=== PATIENT | female | born 1950 | race African-American/Black ===

== ENCOUNTER 2016-11-03 09:05 | Emergency (ER) | payer BC, OTHER ==
[2016-11-03 09:16] VITALS: TEMP 98; BMI 41.1
--- NOTE | 2016-11-03 09:26 | PDOC ---
History of Present Illness - General Chief Complaint: Chest Pain Stated Complaint: CHEST PAIN Time Seen by Provider: 11/03/16 09:26 - History of Present Illness Initial Comments: 11/03/16 10:16 Patient is a 66-year-old female with past medical history of hypertension, insulin-dependent diabetes, obesity, who presents to the emergency department today complaining of chest pain for 2 days. Patient states that her chest pain started on the left side and radiated to her axilla. She states the pain was sharp and intermittent. She thought that it would go away, however patient states that she was concerned when the pain was still present this morning. She has not taken anything for the pain. She also states that she is a little short of breath with this and had some nausea. Denies vomiting. She was recently seen by her metal bench patternmaker and states that she had an EKG and an echo with a stress test done. Denies recent travel, hormone use, fevers, chills, recent illness, wheezing, vomiting, chest tightness, palpitations, GERD, diarrhea or constipation. Past History - Travel Traveled outside of the country in the last 30 days: No Close contact w/someone who was outside of country & ill: No - Past Medical History Allergies/Adverse Reactions: Allergies Allergy/AdvReac Type Severity Reaction Status Date / Time No Known Allergies Allergy Verified 11/03/16 09:16 Home Medications: Ambulatory Orders Amlodipine Besylate 5 mg PO DAILY 11/03/16 Hydrochlorothiazide 25 mg PO DAILY 11/03/16 Ibuprofen [Advil -] 200 mg PO QID 11/03/16 Insulin (Levemir) [Levemir Flexpen -] 65 units SQ BID 11/03/16 Insulin (Novolog) [Novolog Flexpen] 4 units SQ AC 11/03/16 Lisinopril 10 mg PO DAILY 11/03/16 Tramadol HCl 50 mg PO BID 11/03/16 Diabetes: Yes HTN: Yes - Surgical History Appendectomy: Yes - Psycho/Social/Smoking Cessation Hx Suicidal Ideation: No Smoking History: Current every day smoker Have you smoked in the past 12 months: No Number of Cigarettes Smoked Daily: 0 Information on smoking cessation initiated: Yes 'Breaking Loose' booklet given: 11/03/16 Hx Alcohol Use: Yes Drug/Substance Use Hx: No Substance Use Type: Alcohol, Marijuana Review of Systems - Review of Systems Able to Perform ROS?: Yes Is the patient limited Bel[place]ian proficient: No Constitutional: No: Chills, Fever, Weakness Respiratory: Yes: Shortness of Breath. No: Cough, Wheezing Cardiac (ROS): Yes: Chest Pain. No: Edema, Palpitations, Syncope, Chest Tightness ABD/GI: Yes: Nausea. No: Symptoms Reported, Constipated, Diarrhea, Poor Fluid Intake, Vomiting : No: Burning, Dysuria, Frequency, Hematuria Neurological: No: Headache, Numbness, Paresthesia, Tingling *Physical Exam - Vital Signs Last Vital Signs Temp Pulse Resp BP Pulse Ox 98 F 101 H 20 163/84 97 11/03/16 09:09 11/03/16 09:09 11/03/16 09:09 11/03/16 09:09 11/03/16 09:09 - Physical Exam Comments: 11/03/16 10:17 GENERAL: Well developed, well nourished, obese. AAOx3,. Mild distress, pt appears mildly uncomfortable. Breathing easily, O2 Sat 100% on RA. HEENT: Normocephalic, atraumatic. PERRLA, EOMI. No conjunctival pallor. Sclera are non- icteric. Moist mucous membranes. Oropharynx is clear. NECK: Supple. Full ROM. No JVD. Carotid pulses 2+ and symmetric, without bruits. No thyromegaly. No lymphadenopathy. CARDIOVASCULAR: Regular rate and rhythm. No murmurs, rubs, or gallops. Distal pulses are 2+ and symmetric. PULMONARY: No evidence of respiratory distress. Lungs clear to auscultation bilaterally. No wheezing, rales or rhonchi. ABDOMINAL: Soft. Non-tender. Non-distended. No rebound or guarding. No organomegaly. Normoactive bowel sounds. MUSCULOSKELETAL Normal range of motion at all joints. No bony deformities or tenderness. No CVA tenderness. EXTREMITIES: No cyanosis. No clubbing. No edema. No calf tenderness. SKIN: Warm and dry. Normal capillary refill. No rashes. No jaundice. NEUROLOGICAL: Alert, awake, appropriate. Cranial nerves 2-12 intact. No deficits to light touch and temperature in face, upper extremities and lower extremities. No motor deficits in the in face, upper extremities and lower extremities. Normoreflexic in the upper and lower extremities. Normal speech. Toes are down- going bilaterally. Gait is normal without ataxia. PSYCHIATRIC: Cooperative. Good eye contact. Appropriate mood and affect. Heart Score/ECG Review - History History: Slightly suspicious - Electrocardiogram EKG: Normal - Age Age: >/= 65 - Risk Factors Risk Factors Heart Score: Yes Hx Hypertension, Yes Hx Diabetes Based on the list above the patient has:: 1-2 risk factors - Troponin Troponin: </= normal limit - Score Heart Score - Total: 3 ED Treatment Course - LABORATORY CBC & Chemistry Diagram: 11/03/16 09:45 11/03/16 09:45 Medical Decision Making - Medical Decision Making 11/03/16 10:04 Call placed to pt. metal bench patternmaker, Dr. Linares to try and get pt. records for echo and stress test. 11/03/16 10:19 Patient is a 66-year-old female with past medical history of hypertension, insulin-dependent diabetes, obesity, who presents to the emergency department today complaining of chest pain for 2 days. Story sounds slightly suspicious for ACS, we will obtain order set. Other diagnosis includes costochondritis, GERD. Wells criteria 1.5 (heart rate 100) low risk for PE. 1.CBC, CMP, troponin, PT/INR, mag, lipase 2.aspirin, nitroglycerin 3.EKG 4.IV fluids 5.reevaluate. 11/03/16 11:12 EKG: Sinus tachycardia, normal intervals, normal axis, Rate, No acute ST-T wave changes. CXR: 2 views revealed clear lungs, prominent, normal abby and normal heart. Ankles are sharp. Soft tissues are intact and there are degenerative changes with several partially compressed vertebral bodies. Since a prior study of 2004 the vertebral changes have developed if symptoms persist further imaging with a CT may be of help. 11/03/16 11:54 First troponin is negative. Pt. states she feels a little bit better after the Nitro. Spoke with pt. metal bench patternmaker Dr. Randy Linares MD from [facility] , Pt. had an echo and stress test on 10/21/16 and they were both negative at that time. Echo showed an EF of greater than 65%. He feels that if the troponins are negative, she can be followed as an out pt. Will tell pt. of CXR results and to follow up with her PCP as an outpatient for further work up of her compression fractures. 11/03/16 15:00 Second troponin is negative. Will discharge home at this time. Pt. will follow up with Dr. Jackson tomorrow. Pt. understands all discharge instructions and all questions were answered at this time. *DC/Admit/Observation/Transfer Diagnosis at time of Disposition: Atypical chest pain - Discharge Dispostion Disposition: HOME Condition at time of disposition: Improved Admit: No - Referrals Referrals: Juliann Flowers MD [Primary Care Provider] - - Patient Instructions Printed Discharge Instructions: DI for Atypical Chest Pain Additional Instructions: Your testing today for your heart was negative. Rest for the day and keep your appointment with your metal bench patternmaker (Dr. Jackson) tomorrow. Keep a diary as to when you have your chest pain. Drink plenty of fluids as your lab work showed you were a little dehydrated. Return to the ED if you experience worsening chest pain, shortness of breath, palpitations or any changes in your symptoms.
[2016-11-03] MEDS ORDERED: ASPIRIN 81 MG CHEWABLE TABLETS PO ONE (09:43)
[2016-11-03] MEDS ORDERED: NITROGLYCERIN SUBLINGUAL 1/150 0.4 MG TAB SL ONE (09:47)
[2016-11-03 09:52] LABS: BASOPHIL 0.9 % (0-2.0); EOSINOPHIL 2.2 % (0-4.5); MCH 28.9 pg (25.7-33.7); MCHC 33.3 g/dl (32.0-36.0); MEAN PLT VOLUME 9.3 fl (7.5-11.1); NEUTROPHILS 61.4 % (42.8-82.8); PLATELET COUNT 240 K/MM3 (134-434); RDW 13.3 % (11.6-15.6)
[2016-11-03] MEDS ORDERED: ASPIRIN 81 MG CHEWABLE TABLETS ONE (09:54)
[2016-11-03 10:05] LABS: INR 1.06 (0.82-1.09); PROTHROMBIN TIME (PATIENT) 11.7 SEC (9.98-11.88)
[2016-11-03] MEDS ORDERED: SODIUM CHLORIDE 1,000 ML IV STA (10:10)
[2016-11-03 10:23] LABS: ALBUMIN 4.1 g/dl (3.4-5.0); ANION GAP 10 (8-16); BILIRUBIN,TOTAL 0.4 mg/dL (0.2-1.0); CALCIUM 9.7 mg/dL (8.5-10.1); CO2 28 mmol/L (21-32); CREATININE 0.9 mg/dL (0.55-1.02); GLUCOSE,RANDOM 132 mg/dL (74-106); SGOT/AST 54 U/L (15-37); SGPT/ALT 77 U/L (12-78); TOT PROT 7.8 g/dl (6.4-8.2)
[2016-11-03 10:25] LABS: ALK PHOS 82 U/L (45-117); CPK 397 IU/L (26-192); TROPONIN I < 0.02 ng/ml (0.00-0.05)
[2016-11-03] MEDS ORDERED: BISMUTH SUBSALICYLATE 262 MG/15 ML BTL PO ONE (10:55)
[2016-11-03] MEDS ORDERED: FAMOTIDINE 20 MG/50 ML IVPB 50 ML IVPB ONE ×2 (10:55→11:14)
--- NOTE | 2016-11-03 11:13 | PDOC ---
Attending Attestation - Resident Resident Name: Roseann Morrell - ED Attending Attestation I have performed the following: I have examined & evaluated the patient, The case was reviewed & discussed with the resident, I agree w/resident's findings & plan, Exceptions are as noted - HPI HPI: 11/03/16 11:11 66-year-old female with history of hypertension, diabetes presents with chest pain since yesterday. The patient reports is intermittent sharp midsternal chest pain with no radiation or shortness of breath. Denies diaphoresis or vomiting. The patient did go see a share dairy farmer where the physician interior design assistant I contacted the share dairy farmer. Stress test which was nuclear from last week was negative. - Physicial Exam PE: 11/03/16 11:12 GENERAL: Awake, alert, and fully oriented, in no acute distress. HEAD: No signs of trauma EYES: PERRLA, EOMI, sclera anicteric, conjunctiva clear ENT: Auricles normal inspection, hearing grossly normal, nares patent, oropharynx clear without exudates. NECK: Normal ROM, supple, no lymphadenopathy, JVD, or masses LUNGS: Breath sounds equal, clear to auscultation bilaterally. No wheezes, and no crackles HEART: Regular rate and rhythm, normal S1 and S2, no murmurs, rubs or gallops ABDOMEN: Soft, nontender, normoactive bowel sounds. No guarding, no rebound. No masses EXTREMITIES: Normal range of motion, no edema. No clubbing or cyanosis. No cords, erythema, or tenderness NEUROLOGICAL: Cranial nerves II through XII grossly intact. Normal speech, normal gait SKIN: Warm, Dry, normal turgor, no rashes or lesions noted. - Medical Decision Making 11/03/16 11:12 Vital Signs Temp Pulse Resp BP Pulse Ox 98 F 93 H 20 150/81 99 11/03/16 09:09 11/03/16 10:30 11/03/16 10:30 11/03/16 10:30 11/03/16 10:30 We'll rule out AL no unlikely to be acute chronic syndrome given a negative nuclear stress test. We'll obtain labs, two troponins and if negative discharge with follow-up with share dairy farmer tomorrow. Heart Score/ECG Review - History History: Slightly suspicious - Electrocardiogram EKG: Normal - Age Age: >/= 65 - Risk Factors Risk Factors Heart Score: Yes Hx Hypertension, Yes Hx Diabetes Based on the list above the patient has:: 1-2 risk factors - Troponin Troponin: </= normal limit - Score Heart Score - Total: 3 #1 ECG reviewed & interpreted by me at: 09:20 11/03/16 11:13 NSR 97, no std/dorothy, normal axis, normal intervals, QTC 436 msec
--- NOTE | 2016-11-03 12:14 | EKG ---
Test Reason : Blood Pressure : / mmHG Vent. Rate : 097 BPM Atrial Rate : 097 BPM P-R Int : 140 ms QRS Dur : 090 ms QT Int : 344 ms P-R-T Axes : 047 017 037 degrees QTc Int : 436 ms NORMAL SINUS RHYTHM POSSIBLE LEFT ATRIAL ENLARGEMENT BORDERLINE ECG WHEN COMPARED WITH ECG OF 25-FEB-2004 04:39, VENT. RATE HAS INCREASED BY 33 BPM BASE LINE ARTIFACTS CORRELATE CLINICALLY Confirmed by GLEN MENDOZA MD ([id number]) on 11/03/2016 12:14:08 PM Referred By: Confirmed By:GLEN MENDOZA MD
[2016-11-03 14:53] LABS: CPK 373 IU/L (26-192); TROPONIN I < 0.02 ng/ml (0.00-0.05)
[2016-11-03 15:52] VITALS: BP 148/82; PULSE 89
== END 2016-11-03 15:40 | disposition home or self-care (01) ==
LOC: JER 09:05
PROC: 3E0337Z Introduction of Electrolytic and Water Balance Substance into Peripheral Vein, Percutaneous Approach (ICD-10-PCS; principal; 2016-11-03)
PROC: 3E033GC Introduction of Other Therapeutic Substance into Peripheral Vein, Percutaneous Approach (ICD-10-PCS; 2016-11-03)
DX: R07.89 Other chest pain (principal); I11.0 Hypertensive heart disease with heart failure; E11.9 Type 2 diabetes mellitus without complications; Z79.4 Long term (current) use of insulin; E66.9 Obesity, unspecified; Z68.41 Body mass index [BMI] 40.0-44.9, adult
CPT/HCPCS: 36415; 71020-TC; 80053; 82553; 83690; 83735; 84484; 85025; 85610; 93005; 93010; 96361; 96365; 99285-25

== ENCOUNTER 2017-06-27 19:37 | Observation (INO) | payer OTHER ==
[2017-06-27 19:52] VITALS: BMI 40.9
--- NOTE | 2017-06-27 20:27 | PDOC ---
History of Present Illness - General History Source: Patient Exam Limitations: No Limitations - History of Present Illness Initial Comments: 06/27/17 20:50 The patient is a 67 year old female with a significant past medical history of HTN and IDDM who presents to the ED with complaints of lip swelling since earlier today and rash for several days. Patient states her PMD recently prescribed and increased her dosing of lisinopril. Since then, the patient reports intermittent hive-like rashes throughout her abdomen and extremities for the past several days. Patient reports a sudden onset of right sided mandibular and facial swelling prior to her arrival to the ED. Denies fever or chills. Denies throat pain or difficulty swallowing. Denies nausea or vomiting. Denies chest pain. Denies any other symptoms. <Leyda Connors - Last Filed: 06/27/17 20:49> <Kathi Genao - Last Filed: 06/28/17 01:27> - General Chief Complaint: Edema Stated Complaint: FACE SWELLING Time Seen by Provider: 06/27/17 20:12 Past History <Leyda Connors - Last Filed: 06/27/17 20:49> - Past Medical History COPD: No Diabetes: Yes HTN: Yes - Surgical History Appendectomy: Yes - Suicide/Smoking/Psychosocial Hx Smoking History: Never smoked Have you smoked in the past 12 months: No Number of Cigarettes Smoked Daily: 0 Information on smoking cessation initiated: No 'Breaking Loose' booklet given: 11/03/16 Hx Alcohol Use: Yes (3 times weekly) Drug/Substance Use Hx: Yes (Marijuana) Substance Use Type: Alcohol, Marijuana <Kathi Genao - Last Filed: 06/28/17 01:27> - Past Medical History Allergies/Adverse Reactions: Allergies Allergy/AdvReac Type Severity Reaction Status Date / Time No Known Allergies Allergy Verified 06/27/17 19:47 Home Medications: Ambulatory Orders Amlodipine Besylate 5 mg PO DAILY 11/03/16 Hydrochlorothiazide 25 mg PO DAILY 11/03/16 Ibuprofen [Advil -] 200 mg PO QID 11/03/16 Insulin (Levemir) [Levemir Flexpen -] 65 units SQ BID 11/03/16 Insulin (Novolog) [Novolog Flexpen] 4 units SQ AC 11/03/16 Lisinopril 10 mg PO DAILY 11/03/16 Tramadol HCl 50 mg PO BID 11/03/16 Review of Systems - Review of Systems Able to Perform ROS?: Yes Comments:: 06/27/17 20:50 CONSTITUTIONAL: Absent: fever, chills, diaphoresis, generalized weakness, malaise, loss of appetite HEENT: Absent: rhinorrhea, nasal congestion, throat pain, throat swelling, difficulty swallowing, mouth swelling, ear pain, eye pain, visual Changes CARDIOVASCULAR: Absent: chest pain, syncope, palpitations, irregular heart rate, lightheadedness , peripheral edema RESPIRATORY: Absent: cough, shortness of breath, dyspnea with exertion, orthopnea, wheezing, stridor, hemoptysis GASTROINTESTINAL: Absent: abdominal pain, abdominal distension, nausea, vomiting, diarrhea, constipation, melena, hematochezia GENITOURINARY: Absent: dysuria, frequency, urgency, hesitancy, hematuria, flank pain, genital pain MUSCULOSKELETAL: Absent: myalgia, arthralgia, joint swelling SKIN: + rash, facial swelling Absent: itching, pallor HEMATOLOGIC/IMMUNOLOGIC: Absent: easy bleeding, easy bruising, lymphadenopathy, frequent infections ENDOCRINE: Absent: unexplained weight gain, unexplained weight loss, heat intolerance, cold intolerance NEUROLOGIC: Absent: headache, focal weakness or paresthesias, dizziness, unsteady gait, seizure, mental status changes, bladder or bowel incontinence PSYCHIATRIC: Absent: anxiety, depression, suicidal or homicidal ideation, hallucinations. All Other Systems: Reviewed and Negative <Leyda Connors - Last Filed: 06/27/17 20:49> *Physical Exam - Vital Signs Last Vital Signs Temp Pulse Resp BP Pulse Ox 98.3 F 86 18 153/90 97 06/27/17 19:48 06/27/17 19:48 06/27/17 19:48 06/27/17 19:48 06/27/17 19:48 - Physical Exam Comments: 06/27/17 20:50 GENERAL:+ No hot potato voice, able to handle saliva. Patient is not tripoding Well developed, well nourished. Awake and alert. No acute distress. HEENT: + + right mandibular lip swelling and right facial swelling Normocephalic, atraumatic. PERRLA, EOMI. No conjunctival pallor. Sclera are non- icteric. Moist mucous membranes. Oropharynx is clear. ORAL: + uvula is midline. No sublingual swelling, no tongue swelling at this time NECK: Supple. Full ROM. No JVD. Carotid pulses 2+ and symmetric, without bruits. No thyromegaly. NCo lymphadenopathy. CARDIOVASCULAR: Regular rate and rhythm. No murmurs, rubs, or gallops. Distal pulses are 2+ and symmetric. PULMONARY: No evidence of respiratory distress. Lungs clear to auscultation bilaterally. No wheezing, rales or rhonchi. ABDOMINAL: + obese abdomen Soft. Non-tender. Non-distended. No rebound or guarding. No organomegaly. Normoactive bowel sounds. MUSCULOSKELETAL Normal range of motion at all joints. No bony deformities or tenderness. No CVA tenderness. EXTREMITIES: + bilateral trace pitting edema No cyanosis. No clubbing. No calf tenderness. SKIN: Warm and dry. Normal capillary refill. No rashes. No jaundice. NEUROLOGICAL: Alert, awake, appropriate. Cranial nerves 2-12 intact. No deficits to light touch and temperature in face, upper extremities and lower extremities. No motor deficits in the in face, upper extremities and lower extremities. Normoreflexic in the upper and lower extremities. Normal speech. Toes are down- going bilaterally. Gait is normal without ataxia. PSYCHIATRIC: Cooperative. Good eye contact. Appropriate mood and affect. <Leyda Connors - Last Filed: 06/27/17 20:49> - Vital Signs Last Vital Signs Temp Pulse Resp BP Pulse Ox 98.3 F 86 18 153/90 97 06/27/17 19:48 06/27/17 19:48 06/27/17 19:48 06/27/17 19:48 06/27/17 19:48 <Kathi Genao - Last Filed: 06/28/17 01:27> ED Treatment Course - Medications Given in the ED: ED Medications Discontinued Medications Generic Name Dose Route Start Last Admin Trade Name Freq PRN Reason Stop Dose Admin Diphenhydramine HCl 25 mg 06/27/17 20:28 06/27/17 20:35 Benadryl Injection - IVPUSH 06/27/17 20:29 25 mg ONCE ONE Administration Epinephrine 0.3 mg 06/27/17 20:29 06/27/17 20:35 Epipen 0.3mg - IM 06/27/17 20:30 0.3 mg ONCE STA Administration Famotidine 20 mg in 12 mls @ 144 mls/hr 06/27/17 20:29 06/27/17 20:35 Pepcid 20 Mg/12 Ml Push IVPB 06/27/17 20:33 144 mls/hr NOW ONE Administration Methylprednisolone Sodium Succinate 125 mg 06/27/17 20:28 06/27/17 20:35 Solu-Medrol - IVPB 06/27/17 20:29 125 mg ONCE ONE Administration <Leyda Connors - Last Filed: 06/27/17 20:49> - LABORATORY CBC & Chemistry Diagram: 06/27/17 20:50 06/27/17 20:50 <Kathi Genao - Last Filed: 06/28/17 01:27> Medical Decision Making - Medical Decision Making 06/27/17 23:04 67 yo female p/w mandibular lip swelling and facial swelling. No respiratory distress,no tripoding,no wheezing -intraoral exam showed uvula midline with no edema -pt is on an YULIYA inhibitor lisinopril and recently she had increased her lisinopril dosage pt denies any shortness of breath,she has no complaints of throat tightness ROS pt has no dental pain,no obvious dental abscess and no sublingual swelling no fever or chills no sob no throat tightness Differential did include swelling due to dental etiology ,facial abscess , and allergy/angioedema due to YULIYA inhibitor IMP angioedema 06/28/17 01:23 <Kathi Genao - Last Filed: 06/28/17 01:27> *DC/Admit/Observation/Transfer - Attestations Scribe Attestion: 06/27/17 20:50 Documentation prepared by Leyda Connors, acting as manager medical affairs for Kathi Genao MD <Leyda Connors - Last Filed: 06/27/17 20:49> - Discharge Dispostion Admit: Yes <Kathi Genao - Last Filed: 06/28/17 01:27> Diagnosis at time of Disposition: Insulin dependent diabetes mellitus Angioedema Qualifiers: Encounter type: initial encounter Qualified Code(s): T78.3XXA - Angioneurotic edema, initial encounter
[2017-06-27] MEDS ORDERED: methylPREDNISolone NA SUCC 125 MG/2 ML VIAL IVPB ONE (20:28)
[2017-06-27] MEDS ORDERED: EPINEPHrine 1:1,000 0.3 MG/0.3 ML SYR IM STA (20:29)
[2017-06-27] MEDS ORDERED: FAMOTIDINE IV 20 MG/12 ML VIAL IVPB ONE (20:29)
[2017-06-27] MEDS ORDERED: SODIUM CHLORIDE 1,000 ML IV SCH ×2 (20:30→22:45)
[2017-06-27] MEDS ORDERED: methylPREDNISolone NA SUCC 125 MG/2 ML VIAL ONE (20:34)
[2017-06-27] MEDS ORDERED: EPINEPHrine/PF 1 MG/1 ML (1:1,000) AMPULE ONE (20:34)
[2017-06-27] MEDS ORDERED: FAMOTIDINE 20 MG/50 ML IVPB 20 MG/50 ML MG IVPB ONE (20:34)
[2017-06-27 20:55] LABS: BASO % 1.3 % (0-2.0); EOS % 4.5 % (0-4.5); HEMATOCRIT 41.9 % (32.4-45.2); HEMOGLOBIN 14.1 GM/dL (10.7-15.3); MCH 30.1 pg (25.7-33.7); MCHC 33.8 g/dl (32.0-36.0); MEAN CELL VOLUME 88.9 fl (80-96); MEAN PLT VOLUME 9.3 fl (7.5-11.1); MONO % 6.6 % (3.8-10.2); NEUT % 58.6 % (42.8-82.8); PLATELET COUNT 208 K/MM3 (134-434); RBC 4.71 M/mm3 (3.60-5.2); RDW 13.3 % (11.6-15.6); WHITE BLOOD COUNT 9.3 K/mm3 (4.0-10.0)
[2017-06-27 21:08] LABS: PROTHROMBIN TIME (PATIENT) 11.3 SEC (9.98-11.88)
[2017-06-27 21:23] LABS: ALBUMIN 4.1 g/dl (3.4-5.0); ANION GAP 6 (8-16); BILIRUBIN,TOTAL 0.4 mg/dL (0.2-1.0); BLOOD UREA NITROGEN 19 mg/dL (7-18); CALCIUM 9.7 mg/dL (8.5-10.1); CHLORIDE 100 mmol/L (98-107); CO2 32 mmol/L (21-32); CREATININE 0.9 mg/dL (0.55-1.02); GLUCOSE,RANDOM 127 mg/dL (74-106); SGOT/AST 38 U/L (15-37); SGPT/ALT 64 U/L (12-78); SODIUM 138 mmol/L (136-145); TOT PROT 7.4 g/dl (6.4-8.2)
[2017-06-27 21:24] LABS: ALK PHOS 79 U/L (45-117)
--- NOTE | 2017-06-27 21:40 | HP ---
CHIEF COMPLAINT: angioedema x 1 day PCP: Dr. Flowers- [facility] HISTORY OF PRESENT ILLNESS: 67 y/o F with PMH HTN, DM, who presents to the ED c/o angioedema over the past day. As per patient, earlier this evening, she was watching television and drinking water when she developed sudden edema on the R side of her face, and her R upper and bottom lip. Pt states that her "lips felt stretched" and her family members noticed the change. Over the next few hours, her edema spread to the L side of her face. She became increasingly worried, so she decided to come to the ED for further evaluation. Pt notes that in the AM, she took her Lisinopril (20mg dose). She was started on Lisinopril 10mg qd by her PCP, Dr. Flowers, three months ago. Her dose was increased to 20mg a month ago. When her dose was increased, she started to develop hives all over her trunk and the posterior aspect of her lower extremities. Her sx were mildly alleviated with claritin. Her PCP said he would give her an epi-pen if she developed SOB. Pt currently denies active rashes, JJ, fever, chills, pruritis, SOB, throat closure , or changes in urinary or bowel function. 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 father- HTN, sister- DM, HTN Allergies metformin - causes nausea, emesis HOME MEDICATIONS: Home Medications Medication Instructions Recorded Amlodipine Besylate 5 mg PO DAILY 11/03/16 Hydrochlorothiazide 25 mg PO DAILY 11/03/16 Ibuprofen [Advil -] 200 mg PO QID 11/03/16 Insulin (Levemir) [Levemir Flexpen 65 units SQ BID 11/03/16 -] Insulin (Novolog) [Novolog Flexpen] 4 units SQ AC 11/03/16 Lisinopril 10 mg PO DAILY 11/03/16 Tramadol HCl 50 mg PO BID 11/03/16 REVIEW OF SYSTEMS CONSTITUTIONAL: Absent: fever, chills, diaphoresis, generalized weakness, malaise, loss of appetite, weight change HEENT: +facial edema, lip edema Absent: rhinorrhea, nasal congestion, throat pain, throat swelling, difficulty swallowing, mouth swelling, ear pain, eye pain, visual changes CARDIOVASCULAR: Absent: chest pain, syncope, palpitations, irregular heart rate, lightheadedness , peripheral edema RESPIRATORY: Absent: cough, shortness of breath, dyspnea with exertion, orthopnea, wheezing, stridor, hemoptysis GASTROINTESTINAL: Absent: abdominal pain, abdominal distension, nausea, vomiting, diarrhea, constipation, melena, hematochezia GENITOURINARY: Absent: dysuria, frequency, urgency, hesitancy, hematuria, flank pain, genital pain MUSCULOSKELETAL: Absent: myalgia, arthralgia, joint swelling, back pain, neck pain SKIN: Absent: rash, itching, pallor HEMATOLOGIC/IMMUNOLOGIC: Absent: easy bleeding, easy bruising, lymphadenopathy, frequent infections ENDOCRINE: Absent: unexplained weight gain, unexplained weight loss, heat intolerance, cold intolerance NEUROLOGIC: Absent: headache, focal weakness or paresthesias, dizziness, unsteady gait, seizure, mental status changes, bladder or bowel incontinence PSYCHIATRIC: Absent: anxiety, depression, suicidal or homicidal ideation, hallucinations. PHYSICAL EXAMINATION Vital Signs - 24 hr 06/27/17 19:48 Temperature 98.3 F Pulse Rate 86 Respiratory 18 Rate Blood Pressure 153/90 O2 Sat by Pulse 97 Oximetry (%) GENERAL: Pleasant woman. Resting comfortably, awake, alert, and fully oriented, in no acute distress. HEAD: Normal with no signs of trauma. EYES: Pupils equal, round and reactive to light, extraocular movements intact, sclera anicteric, conjunctiva clear. EARS, NOSE, THROAT: Ears normal, nares patent, oropharynx clear without exudates. Moist mucous membranes. NECK: Normal range of motion, supple LUNGS: Breath sounds equal, clear to auscultation bilaterally. No wheezes, and no crackles. No accessory muscle use. HEART: Regular rate and rhythm, normal S1 and S2 without murmur, rub or gallop. ABDOMEN: Soft, obese, nontender, not distended, normoactive bowel sounds, no guarding, no rebound, no masses. MUSCULOSKELETAL: Normal range of motion at all joints. No bony deformities or tenderness. No CVA tenderness. LOWER EXTREMITIES: 2+ radial pulses, warm, well-perfused. No calf tenderness. No peripheral edema. NEUROLOGICAL: Cranial nerves II-XII intact. Normal speech. Normal gait. PSYCHIATRIC: Cooperative. SKIN: no rashes present Laboratory Results - last 24 hr 06/27/17 06/27/17 06/27/17 20:50 20:50 20:50 WBC 9.3 D RBC 4.71 Hgb 14.1 Hct 41.9 MCV 88.9 MCH 30.1 MCHC 33.8 RDW 13.3 Plt Count 208 MPV 9.3 Neutrophils % 58.6 Lymphocytes % 29.0 Monocytes % 6.6 Eosinophils % 4.5 D Basophils % 1.3 PT with INR 11.30 INR 1.00 Sodium 138 Potassium 4.0 Chloride 100 Carbon Dioxide 32 Anion Gap 6 L BUN 19 H Creatinine 0.9 Creat Clearance w eGFR > 60 Random Glucose 127 H Calcium 9.7 Total Bilirubin 0.4 AST 38 H ALT 64 Alkaline Phosphatase 79 Total Protein 7.4 Albumin 4.1 EKG: NSR, normal axis, without ST-T changes. ASSESSMENT/PLAN: 67 y/o F with PMH HTN, DM, who presents to the ED c/o angioedema over the past day. As per patient, earlier this evening, she was watching television and drinking water when she developed sudden edema on the R side of her face, and her R lip. Pt admitted to tele-obs for angioedema 2/2 likely lisinopril rxn. #Angioedema 2/2 likely lisinopril rxn -Pt received benadryl 25mg IVPB, epi 0.3mg IM, pepcid 20mg IVPB, solumedrol 125mg IVPB in ED -Currently without SOB, rashes, or throat closure -likely rxn to lisinopril as pt developed rashes s/p lisinopril dose change. unlikely hereditary angioedema as no fam hx allergies -Will continue to monitor airway for changes -Will d/c Lisinopril -Continue pepcid 20mg IVPB in AM -Solumedrol 40mg IVPB in AM -Benadryl 25mg IVPB in AM -Will reassess edema, if needed will continue on above meds -tele-obs monitoring -NPO -IVF #HTN- controlled -Continue HCTZ 25mg qd -Amlodipine 5mg qd -lisinopril has been d/c #DM -ISS ACHS -BGM #F/E/N IV NS 100 cc/hr Monitor electrolytes NPO #PPX DVT: early ambulation, short stay likely #Dispo tele-obs for continued monitoring Visit type - Emergency Visit Emergency Visit: Yes ED Registration Date: 06/27/17 Care time: The patient presented to the Emergency Department on the above date and was hospitalized for further evaluation of their emergent condition. - New Patient This patient is new to me today: Yes Date on this admission: 06/28/17 - Critical Care Critical Care patient: No Hospitalist Screening - Colonoscopy Questionnaire Colonoscopy Questionnaire: Colonoscopy Questionnaire - Patient: 50 - 75 years old and never had a screening colonoscopy: Unknown History of colon or rectal polyps, or CA: Unknown History of IBD, Crohn's disease or UC: Unknown History of abdominal radiation therapy as a child: Unknown - Relative: 1 with colon or rectal CA, or polyps at age 60 or younger: Unknown Colon or rectal CA diagnosed at age 45 or younger: Unknown Multiple relatives with colon or rectal CA: Unknown - Outcome: Screening Result: Negative Screen
--- NOTE | 2017-06-27 21:47 | PN ---
Teaching Attending Note Name of Resident: Lyubov Lebron ATTENDING PHYSICIAN STATEMENT I saw and evaluated the patient. I reviewed the resident's note and discussed the case with the resident. I agree with the resident's findings and plan as documented. SUBJECTIVE: 66 yo F w. pmhx of IDDM, obesity, HTN who presents with lip swelling. Her PMD had recently increased her dose of her Lisinopril. She has had hives on her abdomen/extremities for past few days. States prior to her rrival in ED. No throat pain or swelling. No chest pain, pressure or shortness of breath. OBJECTIVE: Physical: VS: Vital Signs Period Temp Pulse Resp BP Sys/Samuel Pulse Ox Last 24 Hr 98.3 F 86 18 153/90 97 GEN: NAD, Resting in bed, AA0X3, Speaking full complete clear sentences HEENT: NCAT, PERRL, R lip edema, tongue not edematous, throat clear without erythema, edema, or exudates CARD: RRR S1, S2 RESP: CTAB ABD: BSx4, NTD to palpation EXT: - C/C/E CBCD WBC 9.3 K/mm3 (4.0-10.0) D 06/27/17 20:50 RBC 4.71 M/mm3 (3.60-5.2) 06/27/17 20:50 Hgb 14.1 GM/dL (10.7-15.3) 06/27/17 20:50 Hct 41.9 % (32.4-45.2) 06/27/17 20:50 MCV 88.9 fl (80-96) 06/27/17 20:50 MCHC 33.8 g/dl (32.0-36.0) 06/27/17 20:50 RDW 13.3 % (11.6-15.6) 06/27/17 20:50 Plt Count 208 K/MM3 (134-434) 06/27/17 20:50 MPV 9.3 fl (7.5-11.1) 06/27/17 20:50 CMP Sodium 138 mmol/L (136-145) 06/27/17 20:50 Potassium 4.0 mmol/L (3.5-5.1) 06/27/17 20:50 Chloride 100 mmol/L (98-107) 03/25/18 20:50 Carbon Dioxide 32 mmol/L (21-32) 06/27/17 20:50 Anion Gap 6 (8-16) L 06/27/17 20:50 BUN 19 mg/dL (7-18) H 06/27/17 20:50 Creatinine 0.9 mg/dL (0.55-1.02) 06/27/17 20:50 Creat Clearance w eGFR > 60 (>60) 06/27/17 20:50 Random Glucose 127 mg/dL (74-106) H 06/27/17 20:50 Calcium 9.7 mg/dL (8.5-10.1) 06/27/17 20:50 Total Bilirubin 0.4 mg/dL (0.2-1.0) 06/27/17 20:50 AST 38 U/L (15-37) H 06/27/17 20:50 ALT 64 U/L (12-78) 06/27/17 20:50 Alkaline Phosphatase 79 U/L (45-117) 06/27/17 20:50 Total Protein 7.4 g/dl (6.4-8.2) 06/27/17 20:50 Albumin 4.1 g/dl (3.4-5.0) 06/27/17 20:50 Home Medications Medication Instructions Recorded Amlodipine Besylate 5 mg PO DAILY 11/03/16 Hydrochlorothiazide 25 mg PO DAILY 11/03/16 Ibuprofen [Advil -] 200 mg PO QID 11/03/16 Insulin (Levemir) [Levemir Flexpen 65 units SQ BID 11/03/16 -] Insulin (Novolog) [Novolog Flexpen] 4 units SQ AC 11/03/16 Lisinopril 10 mg PO DAILY 11/03/16 Tramadol HCl 50 mg PO BID 11/03/16 EKG- Pending CXR- Pending ASSESSMENT AND PLAN: 67 F with IDDM, Obesity, HTN, who presents with angioedema 1.) Angioedema - S/P Epi - Solu-medrol - Benadryl - Pepcid - Monitor on Tele - NPO for now - IVF 2.) IDDM - FS -RAISS 3.) HTN - DO NOT use Lisinopril - Resume Amlodipine in AM 4.) Dvt Ppx - Anticipate <24 hr stay - [facility] in Obs-Tele
[2017-06-27 22:51] LABS: URINE APPEARANCE CLEAR; URINE BILIRUBIN NEGATIVE (<2.0 mg/dL); URINE BLOOD NEGATIVE (NEGATIVE); URINE COLOR COLORLESS; URINE GLUCOSE (UA) NEGATIVE (NEGATIVE); URINE KETONE NEGATIVE (NEGATIVE); URINE NITRITE NEGATIVE (NEGATIVE); URINE PROTEIN NEGATIVE (NEGATIVE); URINE UROBILINOGEN NEGATIVE mg/dL (0.2-1.0)
[2017-06-27 22:52] LABS: URINE LEUK ESTERASE 2+ (NEGATIVE)
[2017-06-27 22:53] LABS: EPI CELLS RARE /HPF (FEW); URINE BACTERIA RARE /hpf (NONE SEEN)
[2017-06-28 01:28] VITALS: TEMP 97.9
[2017-06-28] MEDS: methylPREDNISolone NA SUCC 40 MG/1 ML VIAL IVPB SCH ×2 (06:04→10:18)
--- NOTE | 2017-06-28 06:51 | PN ---
Physical Exam: SUBJECTIVE: Patient seen and examined OBJECTIVE: Vital Signs Intake & Output 06/25/17 06/26/17 06/27/17 06/28/17 23:59 23:59 23:59 23:59 Weight 106.594 kg Period Temp Pulse Resp BP Sys/Samuel Pulse Ox Last 24 Hr 97.9 F-98.3 F 83-86 18-18 135-153/80-92 96-98 GENERAL: The patient is awake, alert, and fully oriented, in no acute distress. HEAD: Normal with no signs of trauma. EYES: PERRL, extraocular movements intact, sclera anicteric, conjunctiva clear. No ptosis. ENT: Ears normal, nares patent, oropharynx clear without exudates, moist mucous membranes. NECK: Trachea midline, full range of motion, supple. LUNGS: Breath sounds equal, clear to auscultation bilaterally, no wheezes, no crackles, no accessory muscle use. HEART: Regular rate and rhythm, S1, S2 without murmur, rub or gallop. ABDOMEN: Soft, nontender, nondistended, normoactive bowel sounds, no guarding, no rebound, no hepatosplenomegaly, no masses. EXTREMITIES: 2+ pulses, warm, well-perfused, no edema. NEUROLOGICAL: Cranial nerves II through XII grossly intact. Normal speech, gait not observed. PSYCH: Normal mood, normal affect. SKIN: Warm, dry, normal turgor, no rashes or lesions noted Laboratory Results - last 24 hr CBC, BMP CBC, BMP 06/28/17 06:30 06/28/17 06:30 06/27/17 20:50 06/27/17 20:50 06/27/17 06/27/17 06/27/17 20:50 20:50 20:50 WBC 9.3 D RBC 4.71 Hgb 14.1 Hct 41.9 MCV 88.9 MCH 30.1 MCHC 33.8 RDW 13.3 Plt Count 208 MPV 9.3 Neutrophils % 58.6 Lymphocytes % 29.0 Monocytes % 6.6 Eosinophils % 4.5 D Basophils % 1.3 PT with INR 11.30 INR 1.00 Sodium 138 Potassium 4.0 Chloride 100 Carbon Dioxide 32 Anion Gap 6 L BUN 19 H Creatinine 0.9 Creat Clearance w eGFR > 60 Random Glucose 127 H Calcium 9.7 Total Bilirubin 0.4 AST 38 H ALT 64 Alkaline Phosphatase 79 Total Protein 7.4 Albumin 4.1 Urine Color Urine Appearance Urine pH Ur Specific [place] Urine Protein Urine Glucose (UA) Urine Ketones Urine Blood Urine Nitrite Urine Bilirubin Urine Urobilinogen Ur Leukocyte Esterase Urine WBC (Auto) Urine RBC (Auto) Ur Epithelial Cells Urine Bacteria 06/27/17 22:45 WBC RBC Hgb Hct MCV MCH MCHC RDW Plt Count MPV Neutrophils % Lymphocytes % Monocytes % Eosinophils % Basophils % PT with INR INR Sodium Potassium Chloride Carbon Dioxide Anion Gap BUN Creatinine Creat Clearance w eGFR Random Glucose Calcium Total Bilirubin AST ALT Alkaline Phosphatase Total Protein Albumin Urine Color Colorless Urine Appearance Clear Urine pH 6.0 Ur Specific [place] 1.004 Urine Protein Negative Urine Glucose (UA) Negative Urine Ketones Negative Urine Blood Negative Urine Nitrite Negative Urine Bilirubin Negative Urine Urobilinogen Negative Ur Leukocyte Esterase 2+ H Urine WBC (Auto) 5 Urine RBC (Auto) 2 Ur Epithelial Cells Rare Urine Bacteria Rare Active Medications Generic Name Dose Route Start Last Admin Trade Name Freq PRN Reason Stop Dose Admin Amlodipine Besylate 5 mg 06/28/17 10:00 Norvasc - PO DAILY JARRED Diphenhydramine HCl 25 mg 06/28/17 07:00 06/28/17 06:11 Benadryl Injection - IVPUSH 25 mg DAILY JARRED Administration Hydrochlorothiazide 25 mg 06/28/17 10:00 Hctz - PO DAILY JARRED Sodium Chloride 1,000 mls @ 100 mls/hr 06/27/17 22:45 06/27/17 22:47 Normal Saline - IV 100 mls/hr ASDIR JARRED Administration Famotidine/Sodium Chloride 20 mg in 50 mls @ 100 mls/hr 06/28/17 07:00 06:04 Pepcid 20 Mg Premixed Ivpb - IVPB 06/28/17 07:29 100 mls/hr ONCE ONE Administration Insulin Aspart 1 vial 06/28/17 07:00 06/28/17 06:11 Novolog Vial Sliding Scale - SQ Not Given ACHS JARRED Protocol Methylprednisolone Sodium Succinate 40 mg 06/28/17 07:00 06/28/17 06:04 Solu-Medrol - IVPB 40 mg DAILY JARRED Administration No micro UA - 2+ leuk esterase, otherwise normal CXR 06/27 - No pathology ASSESSMENT/PLAN: 67 y/o F with PMH HTN, DM, who presents to the ED c/o angioedema over the past day. As per patient, earlier this evening, she was watching television and drinking water when she developed sudden edema on the R side of her face, and her R lip. Pt admitted to tele-obs for angioedema 2/2 likely lisinopril rxn. #Angioedema 2/2 likely lisinopril rxn -Pt received benadryl 25mg IVPB, epi 0.3mg IM, pepcid 20mg IVPB, solumedrol 125mg IVPB in ED -Currently without SOB, rashes, or throat closure -likely rxn to lisinopril as pt developed rashes s/p lisinopril dose change. unlikely hereditary angioedema as no fam hx allergies -Will continue to monitor airway for changes -Will d/c Lisinopril -Continue pepcid 20mg IVPB in AM -Solumedrol 40mg IVPB in AM -Benadryl 25mg IVPB in AM -Will reassess edema, if needed will continue on above meds -tele-obs monitoring -NPO -IVF #HTN- controlled -Continue HCTZ 25mg qd -Amlodipine 5mg qd -lisinopril has been d/c #DM -ISS ACHS -BGM #F/E/N IV NS 100 cc/hr Monitor electrolytes NPO #PPX DVT: early ambulation, short stay likely #Dispo tele-obs for continued monitoring
[2017-06-28] MEDS ORDERED: INSULIN SLIDING SCALE (NOVOLOG) 1 VIAL SQ SCH (07:00)
[2017-06-28] MEDS ORDERED: FAMOTIDINE 20 MG/50 ML IVPB 20 MG/50 ML MG IVPB ONE (07:00)
[2017-06-28 07:03] LABS: BASO % 0.5 % (0-2.0); HEMOGLOBIN 14.1 GM/dL (10.7-15.3); LYMPH % 13.1 % (8-40); MCH 30.5 pg (25.7-33.7); MCHC 34.4 g/dl (32.0-36.0); MEAN CELL VOLUME 88.7 fl (80-96); MONO % 1.3 % (3.8-10.2); NEUT % 85.1 % (42.8-82.8); PLATELET COUNT 244 K/MM3 (134-434); RBC 4.62 M/mm3 (3.60-5.2); RDW 13.3 % (11.6-15.6); WHITE BLOOD COUNT 8.5 K/mm3 (4.0-10.0)
[2017-06-28 07:30] LABS: ANION GAP 11 (8-16); BLOOD UREA NITROGEN 17 mg/dL (7-18); CALCIUM 9.2 mg/dL (8.5-10.1); CHLORIDE 101 mmol/L (98-107); CO2 28 mmol/L (21-32); CREATININE 0.9 mg/dL (0.55-1.02); GLUCOSE,RANDOM 265 mg/dL (74-106); MAGNESIUM 2.2 mg/dL (1.8-2.4); PHOSPHOROUS 3.8 mg/dL (2.5-4.9); POTASSIUM 4.9 mmol/L (3.5-5.1); SODIUM 140 mmol/L (136-145)
[2017-06-28] MEDS ORDERED: methylPREDNISolone NA SUCC 40 MG/1 ML VIAL IVPB SCH (10:00)
[2017-06-28] MEDS ORDERED: amLODIPine BESYLATE 5 MG TABLET (FP) PO SCH (10:00)
[2017-06-28] MEDS ORDERED: HYDROCHLOROTHIAZIDE 25 MG TABLET (FP) PO SCH (10:00)
[2017-06-28] MEDS ORDERED: FAMOTIDINE IV 20 MG/12 ML VIAL IVPB ONE (10:00)
[2017-06-28] MEDS ORDERED: LOSARTAN POTASSIUM 25 MG TABLET PO ONE (11:47)
[2017-06-28] MEDS ORDERED: ACETAMINOPHEN 325 MG TABLET (FP) PO ONE (11:52)
[2017-06-28] MEDS ORDERED: ACETAMINOPHEN 325 MG TABLET (FP) ONE (12:12)
[2017-06-28 12:49] VITALS: BP 178/98; PULSE 65
--- NOTE | 2017-06-28 13:38 | DS ---
Physical Exam: SUBJECTIVE: Patient seen and examined by me this AM - No major overnight events. Swelling in face resolved. Per pt, has experienced hives every other day after lisinopril increased from 10 to 20mg last month. One prior episode of facial edema, resolved with oral benadryl at home OBJECTIVE: Vital Signs Intake & Output 06/25/17 06/26/17 06/27/17 06/28/17 23:59 23:59 23:59 23:59 Weight 106.594 kg Period Temp Pulse Resp BP Sys/Samuel Pulse Ox Last 24 Hr 97.9 F-98.3 F 65-98 16-18 135-190/80-106 96-100 PHYSICAL EXAM GENERAL: The patient is awake, alert, and fully oriented, in no acute distress. HEAD: Normal with no signs of trauma. EYES: PERRL, extraocular movements intact, sclera anicteric, conjunctiva clear. ENT: Ears normal, nares patent, oropharynx clear without exudates, moist mucous membranes. NECK: Trachea midline, full range of motion, supple. LUNGS: Breath sounds equal, clear to auscultation bilaterally, no wheezes, no crackles, no accessory muscle use. HEART: Regular rate and rhythm, S1, S2 without murmur, rub or gallop. ABDOMEN: Soft, nontender, nondistended, normoactive bowel sounds, no guarding, no rebound, no hepatosplenomegaly, no masses. EXTREMITIES: 2+ pulses, warm, well-perfused, no edema. NEUROLOGICAL: Cranial nerves II through XII grossly intact. Normal speech, gait not observed. PSYCH: Normal mood, normal affect. SKIN: Warm, dry, normal turgor, no rashes or lesions noted. LABS Laboratory Results - last 24 hr CBC, BMP 06/28/17 06:30 06/28/17 06:30 06/27/17 06/27/17 06/27/17 20:50 20:50 20:50 WBC 9.3 D RBC 4.71 Hgb 14.1 Hct 41.9 MCV 88.9 MCH 30.1 MCHC 33.8 RDW 13.3 Plt Count 208 MPV 9.3 Neutrophils % 58.6 Lymphocytes % 29.0 Monocytes % 6.6 Eosinophils % 4.5 D Basophils % 1.3 PT with INR 11.30 INR 1.00 Sodium 138 Potassium 4.0 Chloride 100 Carbon Dioxide 32 Anion Gap 6 L BUN 19 H Creatinine 0.9 Creat Clearance w eGFR > 60 Random Glucose 127 H Calcium 9.7 Phosphorus Magnesium Total Bilirubin 0.4 AST 38 H ALT 64 Alkaline Phosphatase 79 Total Protein 7.4 Albumin 4.1 Urine Color Urine Appearance Urine pH Ur Specific [place] Urine Protein Urine Glucose (UA) Urine Ketones Urine Blood Urine Nitrite Urine Bilirubin Urine Urobilinogen Ur Leukocyte Esterase Urine WBC (Auto) Urine RBC (Auto) Ur Epithelial Cells Urine Bacteria 06/27/17 06/28/17 06/28/17 22:45 06:30 06:30 WBC 8.5 RBC 4.62 Hgb 14.1 Hct 41.0 MCV 88.7 MCH 30.5 MCHC 34.4 RDW 13.3 Plt Count 244 MPV 9.0 Neutrophils % 85.1 H D Lymphocytes % 13.1 D Monocytes % 1.3 L D Eosinophils % 0.0 D Basophils % 0.5 PT with INR INR Sodium 140 Potassium 4.9 Chloride 101 Carbon Dioxide 28 Anion Gap 11 BUN 17 Creatinine 0.9 Creat Clearance w eGFR Random Glucose 265 H Calcium 9.2 Phosphorus 3.8 Magnesium 2.2 Total Bilirubin AST ALT Alkaline Phosphatase Total Protein Albumin Urine Color Colorless Urine Appearance Clear Urine pH 6.0 Ur Specific [place] 1.004 Urine Protein Negative Urine Glucose (UA) Negative Urine Ketones Negative Urine Blood Negative Urine Nitrite Negative Urine Bilirubin Negative Urine Urobilinogen Negative Ur Leukocyte Esterase 2+ H Urine WBC (Auto) 5 Urine RBC (Auto) 2 Ur Epithelial Cells Rare Urine Bacteria Rare UA - 2+ leuk esterase, otherwise normal CXR 06/27 - No pathology No consults HOSPITAL COURSE: Prehospital course: 67 y/o F with PMH HTN, DM, who presents to the ED c/o angioedema over the past day. As per patient, earlier this evening, she was watching television and drinking water when she developed sudden edema on the R side of her face, and her R upper and bottom lip. Pt states that her "lips felt stretched" and her family members noticed the change. Over the next few hours, her edema spread to the L side of her face. She became increasingly worried, so she decided to come to the ED for further evaluation. Pt notes that in the AM, she took her Lisinopril (20mg dose). She was started on Lisinopril 10mg qd by her PCP, Dr. Flowers, three months ago. Her dose was increased to 20mg a month ago. When her dose was increased, she started to develop hives all over her trunk and the posterior aspect of her lower extremities. Her sx were mildly alleviated with claritin. Her PCP said he would give her an epi-pen if she developed SOB. Pt currently denies active rashes, JJ, fever, chills, pruritis, SOB, throat closure , or changes in urinary or bowel function. Hospital course: No lab abnormalities in ED. UA notable for 2+ leuk esterase. CXR unremarkable. Pt satting well on RA. Pt received one dose of benadryl, epi-pen, pepcid, solumedrol 125mg IV. Started on NS 125cc/hr. Lisinopril held. Pt with significant improvement in symptoms overnight. In AM, felt much better, no further swelling. However, BP in AM 190/106 before AM HTN meds. Pt with desire to leave AM to see son at home, convince to stay for AM until BP better controlled. BP 161/94 one hour after, ordered for one dose of losartan 25mg. Repeat BP 178/98. Will d/c home with addition of losartan to home meds and d/c of lisinopril. Plan for f/u with PCP. Date of Admission:06/27/17 Date of Discharge: 06/28/17 Pt is medically stable and cleared for discharge with f/u with PCP in one week. Minutes to complete discharge: 35 Discharge Summary Reason For Visit: INSULIN DEPENDENT DIABETES MELLITUS, ANGIOEDEMA Current Active Problems Angioedema (Acute) Insulin dependent diabetes mellitus (Acute) Condition: Improved - Instructions Diet, Activity, Other Instructions: During your stay at [facility], you were treated for angioedema, swelling of the face. You were treated for this condition with benadryl and have since improved and are stable for discharge. We have determined this reaction is likely due to your recent lisinopril use. Medications: Please stop taking your home lisinopril as this was the likely cause of your facial swelling. Please continue to take all other home medications as previously directed. Follow-ups: Please follow-up with your primary care physician, Dr. Flowers, in one week for further management of your medications. Please call their office to schedule an appointment. If you experience a recurrence of your facial swelling or hives, please take oral benadryl 25mg once every 4-6 hours, until the swelling resolves. Diet/exercise: You are cleared for a normal diet and exercise routine. Please return to the hospital if you experience any of the following symptoms: - Swelling of your face, eyes or throat - Worsening rash that does not resolve with benadryl - Difficulty breathing or a worsening sensation of throat tightness - Persistent changes in vision or prolonged dizziness - Persistent nausea or vomiting - Any new or concerning symptoms Referrals: Juliann Flowers MD [Primary Care Provider] - 06/28/17 Disposition: HOME - Home Medications Comprehensive Discharge Medication List: Ambulatory Orders Amlodipine Besylate 5 mg PO DAILY 11/03/16 Hydrochlorothiazide 25 mg PO DAILY 11/03/16 Ibuprofen [Advil -] 200 mg PO QID 11/03/16 Insulin (Levemir) [Levemir Flexpen -] 65 units SQ BID 11/03/16 Insulin (Novolog) [Novolog Flexpen -] 4 units SQ AC 11/03/16 Tramadol HCl 50 mg PO BID 11/03/16 Losartan Potassium 25 mg PO DAILY #30 tablet 06/28/17 This patient is new to me today: Yes Date on this admission: 06/28/17 Emergency Visit: Yes ED Registration Date: 06/27/17 Care time: The patient presented to the Emergency Department on the above date and was hospitalized for further evaluation of their emergent condition. Critical Care patient: No - Discharge Referral Referred to [facility] No
--- NOTE | 2017-06-28 14:50 | EKG ---
Test Reason : Blood Pressure : / mmHG Vent. Rate : 074 BPM Atrial Rate : 074 BPM P-R Int : 150 ms QRS Dur : 088 ms QT Int : 416 ms P-R-T Axes : 047 010 018 degrees QTc Int : 461 ms NORMAL SINUS RHYTHM NORMAL ECG WHEN COMPARED WITH ECG OF 03-NOV-2016 09:18, NO SIGNIFICANT CHANGE WAS FOUND Confirmed by MARYAM VICTOR MD ([id number]) on 06/28/2017 2:49:39 PM Referred By: Confirmed By:MARYAM VICTOR MD
--- NOTE | 2017-06-28 14:55 | PN ---
Teaching Attending Note Name of Resident: Mian Ryan ATTENDING PHYSICIAN STATEMENT I saw and evaluated the patient. I reviewed the resident's note and discussed the case with the resident. I agree with the resident's findings and plan as documented. SUBJECTIVE:asymptomatic. states she had some facial swelling in the past when first starting lisinopril but was not severe and dissipated quickly. and did not realize it was from medication. has been having hives once medication was increased but PMD did not think it was from medication. denies CP, SOB, fever, chills, stridor, numbness tingling of lips or tongue OBJECTIVE: Last Vital Signs Temp Pulse Resp BP Pulse Ox 97.9 F 65 16 178/98 100 06/28/17 05:48 06/28/17 12:49 06/28/17 12:49 06/28/17 12:49 06/28/17 12:49 General HEENT R cheek swelling, none noted of the lips or tongue no stridor CV S1 S2 RRR No murmur/rub/gallop Lungs CTA B/L no wheezing/rales/rhonchi ASSESSMENT AND PLAN: 67yo F wtih PMH DM and HTN presented wtih lip swelling 1. Angioedema- s/p epipen/medrol/pepcid/benadryl. resolving. no tongue involvement. speaking in clear sentences. will place acei as allergy 2. HTN- uncontrolled. will give AM meds now norvasc and HCTZ. can consider ARB if BP not controlled. pt agreeable to following up with PMD this week 3. d/c home wiht close follow up for BP management
== END 2017-06-28 12:51 | disposition home or self-care (01) ==
LOC: JER 19:37 → JERBED 21:38
PROVIDERS: ADMIT Internal Medicine; ATTEND Internal Medicine
PROC: 3E033GC Introduction of Other Therapeutic Substance into Peripheral Vein, Percutaneous Approach (ICD-10-PCS; principal; 2017-06-27)
PROC: 3E0333Z Introduction of Anti-inflammatory into Peripheral Vein, Percutaneous Approach (ICD-10-PCS; 2017-06-27)
PROC: 3E0337Z Introduction of Electrolytic and Water Balance Substance into Peripheral Vein, Percutaneous Approach (ICD-10-PCS; 2017-06-27)
PROC: 3E023GC Introduction of Other Therapeutic Substance into Muscle, Percutaneous Approach (ICD-10-PCS; 2017-06-27)
DX: T78.3XXA Angioneurotic edema, initial encounter (principal); E11.9 Type 2 diabetes mellitus without complications; I10 Essential (primary) hypertension; Z79.4 Long term (current) use of insulin; X58.XXXA Exposure to other specified factors, initial encounter; E66.9 Obesity, unspecified; Z68.41 Body mass index [BMI] 40.0-44.9, adult
CPT/HCPCS: 36415; 71045-TC-FY; 80048; 80053; 81003; 81015; 82962; 83735; 84100; 85025; 85610; 93005; 93010; 96365; 96372; 96375; 99285-25; G0378; J7030

== ENCOUNTER 2018-04-02 16:13 | Emergency (ER) | payer OTHER ==
[2018-04-02 16:21] VITALS: BP 160/86; PULSE 96; TEMP 98.5; BMI 40.7
--- NOTE | 2018-04-02 17:08 | PDOC ---
History of Present Illness - General Chief Complaint: Injury Stated Complaint: FALL Time Seen by Provider: 04/02/18 16:24 History Source: Patient - History of Present Illness Pain Location: reports: chest, head, lower extremity, upper extremity Method of Injury: Yes: fall Past History - Past Medical History Allergies/Adverse Reactions: Allergies Allergy/AdvReac Type Severity Reaction Status Date / Time lisinopril Allergy Severe Difficulty Verified 04/02/18 16:17 Breathing Home Medications: Ambulatory Orders Amlodipine Besylate 5 mg PO DAILY 11/03/16 Hydrochlorothiazide 25 mg PO DAILY 11/03/16 Ibuprofen [Advil -] 200 mg PO QID 11/03/16 Insulin (Levemir) [Levemir Flexpen -] 65 units SQ BID 11/03/16 Insulin (Novolog) [Novolog Flexpen -] 4 units SQ AC 11/03/16 Tramadol HCl 50 mg PO BID 11/03/16 Losartan Potassium 25 mg PO DAILY #30 tablet 06/28/17 COPD: No Diabetes: Yes HTN: Yes - Surgical History Appendectomy: Yes - Suicide/Smoking/Psychosocial Hx Smoking History: Never smoked Have you smoked in the past 12 months: No Number of Cigarettes Smoked Daily: 0 Information on smoking cessation initiated: No 'Breaking Loose' booklet given: 11/03/16 Hx Alcohol Use: No Drug/Substance Use Hx: No Substance Use Type: Alcohol, Marijuana Review of Systems - Review of Systems Constitutional: No: Chills, Fever Respiratory: No: Shortness of Breath Cardiac (ROS): No: Chest Pain Musculoskeletal: Yes: Joint Pain. No: Joint Swelling, Neck Pain Neurological: No: Headache, Dizziness *Physical Exam - Vital Signs Last Vital Signs Temp Pulse Resp BP Pulse Ox 98.5 F 96 H 16 160/86 100 04/02/18 16:17 04/02/18 16:17 04/02/18 16:17 04/02/18 16:17 04/02/18 16:17 - Physical Exam General Appearance: Yes: Appropriately Dressed. No: Apparent Distress HEENT: positive: Normal Voice, Other (smal abrasion to R forehead). negative: Scleral Icterus (R), Scleral Icterus (L) Neck: negative: Tender, Decreased range of motion Respiratory/Chest: positive: Chest Tender (to lateral R chest w/ contusion noted , no crepitus/step offs), Lungs Clear, Normal Breath Sounds. negative: Respiratory Distress Cardiovascular: positive: Regular Rate, S1, S2 Gastrointestinal/Abdominal: positive: Soft. negative: Tender Extremity: positive: Other (abrasion to anterior L knee w/ minimal surrounding erythema and ? warmth, +ttp, no joint swellign w/ FROMI). negative: Swelling Integumentary: positive: Dry, Warm, Other (ecchymosis to medial aspect of proximal R arm, no joint swelling w/ FROMI) Neurologic: positive: Fully Oriented, Alert, Normal Mood/Affect, Motor Strength 5/5 Moderate Sedation - Procedure Monitoring Vital Signs: Procedure Monitoring Vital Signs Temperature 98.5 F 04/02/18 16:17 Pulse Rate 96 H 04/02/18 16:17 Respiratory Rate 16 04/02/18 16:17 Blood Pressure 160/86 04/02/18 16:17 O2 Sat by Pulse Oximetry (%) 100 04/02/18 16:17 ED Treatment Course - RADIOLOGY Radiology Studies Ordered: Category Date Time Status HEAD CT WITHOUT CONTRAST [CT] Stat CT Scan 04/02/18 17:02 Ordered CHEST PA & LAT [RAD] Stat Radiology 04/02/18 17:02 Ordered RIBS BILATERAL [RAD] Stat Radiology 04/02/18 17:02 Ordered Medical Decision Making - Medical Decision Making 04/02/18 17:03 68-year-old female, history of hypertension, diabetes, here with multiple injuries status post fall. Patient states her right knee gave out 5 days ago at home, causing her to fall, landing mostly on her right side. States she did strike her head against the floor, but denies LOC. Not on blood thinners. No neck, back or hip pain and has been ambulating since. Patient here today because she is having persistent pain to lateral aspect of right chest that is worse when she coughs or takes a deep breath. No JJ, dizziness, visual changes. Denies CP or dizziness prior to fall see exam R/o rib fx s/ mechanical fall 5 days ago No concerning injury on exam Not on blood thinners No hip/LE deformity and ambulating -CTH given head injury -rib series/cxr -possible infected abrasion to L knee on exam, no e/o deeper infection, will give abx upon discharge w/ 48 hr f/u j carlos given h/o DM 04/02/18 17:08 04/02/18 19:11 CT head read as negative. Rib series reviewed with Dr. Sampson in main ED and demonstrates multiple rib fractures seen. Aimee. recommending CT chest for better evaluation. Pt signed out to [facility] pending CT chest. Midlevel also aware to tx for possible L knee cellulitis w/ keflex and wound check in 2 days if pt is discharged *DC/Admit/Observation/Transfer Diagnosis at time of Disposition: Rib fractures Qualifiers: Encounter type: initial encounter Rib fracture type: multiple ribs Fracture type: closed Laterality: right Qualified Code(s): S22.41XA - Multiple fractures of ribs, right side, initial encounter for closed fracture Fall Qualifiers: Encounter type: initial encounter Qualified Code(s): W19.XXXA - Unspecified fall, initial encounter - Referrals Referrals: Juliann Flowers MD [Primary Care Provider] - - Patient Instructions - Post Discharge Activity
[2018-04-02] MEDS ORDERED: ACETAMINOPHEN 325 MG TABLET (FP) PO ONE ×2 (18:55→19:06)
[2018-04-02] MEDS ORDERED: traMADol HCL 50 MG TABLET PO ONE (18:58)
[2018-04-02] MEDS ORDERED: ACETAMINOPHEN 325 MG TABLET (FP) ONE (18:59)
[2018-04-02] MEDS ORDERED: traMADol HCL 50 MG TABLET ONE (19:02)
--- NOTE | 2018-04-02 20:36 | PDOC ---
*Physical Exam - Vital Signs Last Vital Signs Temp Pulse Resp BP Pulse Ox 98.5 F 96 H 16 160/86 100 04/02/18 16:17 04/02/18 16:17 04/02/18 16:17 04/02/18 16:17 04/02/18 16:17 - Physical Exam General Appearance: Yes: Appropriately Dressed. No: Apparent Distress Respiratory/Chest: positive: Chest Tender (right lateral over 6th and 7th ribs. No SQ emphysema. +crepitus), Normal Breath Sounds. negative: Respiratory Distress, Accessory Muscle Use Cardiovascular: positive: Regular Rhythm, Regular Rate Integumentary: positive: Erythema (lateral left knee) ED Treatment Course - Medications Given in the ED: ED Medications Discontinued Medications Generic Name Dose Route Start Last Admin Trade Name Freq PRN Reason Stop Dose Admin Acetaminophen 650 mg 04/02/18 18:55 04/02/18 19:00 Tylenol - PO 04/02/18 18:56 650 mg ONCE ONE Administration Acetaminophen 650 mg 04/02/18 19:06 04/02/18 19:30 Tylenol - PO 04/02/18 19:07 Not Given ONCE ONE Tramadol HCl 50 mg 04/02/18 18:58 04/02/18 19:03 Ultram - PO 04/02/18 18:59 50 mg ONCE ONE Administration Medical Decision Making - Medical Decision Making 04/02/18 20:31 [place] out from [facility]. Briefly this is a 68-year-old woman with past medical history of IDDM of presents emergency Department for right rib pain status post fall one week ago. Patient had x-rays performed which preliminary read of 2 nondisplaced rib fractures of ribs 6 and 7 laterally. Patient is pending CT scan at this time. CT as read by imaging sap consultant: Atelectasis and scarring in the lungs. No focal consolidation, lung contusion, pleural effusion or pneumothorax. Nondisplaced fractures of the right sixth and seventh lateral ribs. There is no sign of traumatic pneumothorax or hemothorax I will discharge the patient home with incentive spirometry and lidocaine patch. *DC/Admit/Observation/Transfer Diagnosis at time of Disposition: Rib fractures Qualifiers: Encounter type: initial encounter Rib fracture type: multiple ribs Fracture type: closed Laterality: right Qualified Code(s): S22.41XA - Multiple fractures of ribs, right side, initial encounter for closed fracture Fall Qualifiers: Encounter type: initial encounter Qualified Code(s): W19.XXXA - Unspecified fall, initial encounter - Discharge Dispostion Disposition: HOME Condition at time of disposition: Stable Decision to Admit order: No - Prescriptions Prescriptions: Cephalexin Monohydrate [Keflex -] 500 mg PO Q6H #28 capsule Lidocaine 5% Patch [Lidoderm Patch -] 1 patch TP DAILY #7 patch - Referrals Referrals: Juliann Flowers MD [Primary Care Provider] - - Patient Instructions Printed Discharge Instructions: How to Prevent Falls Additional Instructions: Use incentive spirometer 10 times per hour. If you watching television this should be 1 use for every commercial you see on television. He may use Lidoderm patches daily to help control her pain. Take Tylenol or Motrin as needed for pain. Follow manufacture's instructions for appropriate dosage. Take Keflex 500 mg 4 times a day the next 7 days. Return to her primary doctor for reevaluation within the next 5 days. Return to emergency department for worsening pain, shortness of breath, difficulty breathing or any other concerns. Thank you very much for choosing us to provide your emergent health care needs. - Post Discharge Activity
== END 2018-04-02 21:06 | disposition home or self-care (01) ==
LOC: JER 16:13 → JERFT 16:13 → JER 21:06
DX: S27.898A Other injury of other specified intrathoracic organs, initial encounter (principal); S22.41XA Multiple fractures of ribs, right side, initial encounter for closed fracture; S80.212A Abrasion, left knee, initial encounter; W07.XXXA Fall from chair, initial encounter; Y93.89 Activity, other specified; Y92.89 Other specified places as the place of occurrence of the external cause; Y99.8 Other external cause status; I10 Essential (primary) hypertension; E11.9 Type 2 diabetes mellitus without complications; Z79.4 Long term (current) use of insulin
CPT/HCPCS: 70450-TC; 71046-TC-FY; 71111-TC-FY; 71250-TC; 99281-25